=== PATIENT | male | born 1950 | race Caucasian/White ===

== ENCOUNTER 2019-12-31 07:33 | Day surgery (SDC) | payer MEDICARE ==
[~2019-12-31] VITALS: Ht 177.8 cm; Wt 58.7 kg
[2019-12-31] VITALS (7 sets, daily range): BP systolic 93–140; BP diastolic 50–70; PULSE 52–64; TEMP 98.1
[2019-12-31] MEDS ORDERED: PRINZIDE 25 MG-1 TAB PO (07:44)
[2019-12-31] MEDS ORDERED: MEVACOR 20M20 MG/TAB PO (07:45)
[2019-12-31] MEDS ORDERED: NORCO 325 MG-51 TAB PO (09:54)
--- NOTE | 2019-12-31 09:55 | NUR ---
The patient arrived back to [facility] from operating room at this time. The patient appears drowsy but arouses easily to his name. The patient's dressing ot his right groin appears clean, dry and intact. Post operative vital signs were started at this time. Call light is within reach. The patient requests to try some orange juice at this time. Will continue to monitor the patient.
--- NOTE | 2019-12-31 10:10 | NUR ---
The patient has tried some orange juice and reports feeling nauseated at this time. The patient was given some ice water and a cool wash cloth for forehead. Vital signs appear stable. Will continue to monitor the patient.
--- NOTE | 2019-12-31 10:25 | NUR ---
The patient is resting comfortably on the cart and states he is "starting to come around from the nausea". Call light remains within reach. Will continue to monitor the patient.
--- NOTE | 2019-12-31 10:40 | NUR ---
The patient appears to be feeling better and agrees to try some saltine crackers at this time. The patient has been sipping on his water and appears to be tolerating it well. Will continue to monitor the patient.
--- NOTE | 2019-12-31 11:10 | NUR ---
The patient appears to be tolerating the crackers well and denies wanting anything further to eat or drink at this time. Vital signs appear stable. Call ligth remains within reach. Will continue to monitor the patient.
--- NOTE | 2019-12-31 11:40 | NUR ---
The patient ambulated to the bathroom with the stand by assist of one nurse and appeared to tolerate the activity well. The patient voided without difficulty and voices a desire to be discharged home.
--- NOTE | 2019-12-31 12:00 | NUR ---
Discharge instructions were reviewed with the patient at this time. He verbalized understanding and has no questions for the nurse at this time. The patient's IV to his left forearm was removed and a pressure dressing was applied to the site. The patient is dressed and ready to be escorted out.
--- NOTE | 2019-12-31 12:10 | NUR ---
The patient was escorted out via wheelchair to a private vehicle by CHINA Vega. The patient's belongings and discharge paperwork were sent with him. The patient's is present to drive him home.
== END 2019-12-31 12:10 | disposition home or self-care (01) ==
LOC: SDCO 07:33
DX: K40.90 Unilateral inguinal hernia, without obstruction or gangrene, not specified as recurrent (principal); I10 Essential (primary) hypertension; E78.00 Pure hypercholesterolemia, unspecified; Z20.828 Contact with and (suspected) exposure to other viral communicable diseases; Z79.899 Other long term (current) drug therapy; Z82.49 Family history of ischemic heart disease and other diseases of the circulatory system
CPT/HCPCS: C1781; J0690; J1885; J2250; J2704; J3010; J7120